=== PATIENT | male | born 1985 | race Caucasian/White ===

== ENCOUNTER → 2018-03-05 | Outpatient (CLI) | payer MEDICARE, MEDICAID ==
[~2018-03-05] MED LIST: CEP500 PO; FLUT16SP19 NS; MONT10TA PO; TIZ4 PO; TRA50 PO
--- NOTE | 2018-03-05 15:06 | RADIOLOGY IMAGING REPORT ---
FACILITY: [facility] PATIENT NAME: Shawn De Leon : 1985 MR: [id number] V: [id number] EXAM DATE: ORDERING PHYSICIAN: OSCAR SPAULDING TECHNOLOGIST: Location: [facility] - [place] Patient: Shawn De Leon : 1985 Visit/Account:[id number] Date of Sevice: 03/05/2018 Exam type: LUMBAR SPINE 2 OR 3 VIEW History: back pain Comparison: None. Findings: Two views of the lumbar spine demonstrate five nonrib-bearing lumbar-type vertebral bodies with hypop lastic ribs at T12 there is moderate disc space narrowing at T11-12 and T12-L1 and L1-L2. There is a corner fracture through the anterior superior endplate of L4 of indeterminate age. There is a 3 mm anterior listhesis of L5 through SPECT S1. IMPRESSION: 1. Corner fracture through the anterior superior endplate of L4 of indeterminate age however I suspe ct this is old due to the smooth margins Spondylotic changes as described Report Dictated By: Kari Jackson MD at 03/05/2018 3:00 PM Report E-Signed By: Kari Jackson MD at 03/05/2018 3:02 PM WSN:[email or web address]
== END ==
LOC: LAB 13:40
PROVIDERS: ATTEND Internal Medicine
DX: S32.040A Wedge compression fracture of fourth lumbar vertebra, initial encounter for closed fracture (principal); M47.817 Spondylosis without myelopathy or radiculopathy, lumbosacral region; H92.02 Otalgia, left ear
CPT/HCPCS: 72100

== ENCOUNTER → 2018-04-09 | Outpatient (CLI) | payer MEDICARE, MEDICAID ==
[~2018-04-09] MED LIST changes: +ALPR-429 PO; +SERT-181 PO
== END ==
LOC: AUD 13:00
PROVIDERS: ATTEND Otolaryngology
DX: H91.92 Unspecified hearing loss, left ear (principal)
CPT/HCPCS: 92557; 92570

== ENCOUNTER → 2018-05-10 | Outpatient (CLI) | payer MEDICARE, MEDICAID ==
[~2018-05-10] MED LIST changes: +FLUT16SP19
== END ==
LOC: AUD 13:30
PROVIDERS: ATTEND Otolaryngology
DX: H69.83 Other specified disorders of Eustachian tube, bilateral (principal)
CPT/HCPCS: 92567

== ENCOUNTER 2018-07-17 12:14 | Emergency (ER) | payer MEDICAID, MEDICARE ==
[~2018-07-17 12:14] MED LIST changes: +OFLO5DRO41 LEFT EAR
--- NOTE | 2018-07-17 12:18 | ER Report ---
History and Physical Time Seen By MD: 12:18 HPI/ROS CHIEF COMPLAINT: Left lower extremity pain HISTORY OF PRESENT ILLNESS: Patient is a 33-year-old male here with complaints of left lower extremity pain starting this morning shortly after waking up. Patient reports increased intensity of pain, in the anterior lateral aspect of the extremity distal to the knee, right distal medial extremity. Patient denies injury to the site, swelling, discoloration or paresthesias. Neurovascular exam is intact at time of evaluation, compartment is not tense on exam, capillary refill less than 2 seconds. Denies prior history of DVT, PE or clotting disord er. REVIEW OF SYSTEMS: Constitutional: No fever, no chills. Cardiovascular: No chest pain, no palpitations. Respiratory: No cough, no shortness of breath. Genitourinary: No hematuria. Musculoskeletal: No back pain. + Left lower extremity pain since this morning Skin: No rashes. Neurological: Neurovascular exam intact distal to the site of maximum tenderness Allergies: Coded Allergies: BEE STINGS (Verified Allergy, Mild, 07/17/18) NSAIDS (Non-Steroidal Anti-Inflamma (Verified Allergy, Mild, 07/17/18) erythromycin base (Verified Allergy, Mild, 07/17/18) ketorolac (Verified Allergy, Mild, 07/17/18) nitroglycerin (Verified Allergy, Mild, 07/17/18) sulfisoxazole (Verified Allergy, Mild, 07/17/18) Home Meds Active Scripts Tramadol Hcl (TRAMADOL HCL) 50 Mg Tablet, 50 MG PO Q6H PRN for PAIN, #12 TAB 0 Refills Prov:CHLOE RICH DO 07/17/18 Ofloxacin (Ofloxacin) 0.3 % Drops, 4 DROP LEFT EAR BID for 3 Days, #1 BOT Prov:KURT GILL JR, MD 06/13/18 Montelukast Sodium (SINGULAIR) 10 Mg Tablet, 1 TAB PO QDAY, #30 TAB 6 Refills Prov:OSCAR GARRETT MD 06/04/18 Fluticasone Prop 50 Mcg Ns (FLONASE 50 MCG NS) 16 Gm [place].susp, 2 SPRAYS NA QDAY for 30 Days, #1 BOT 11 Refills Prov:KURT GILL JR, MD 04/22/18 Alprazolam (XANAX) 0.5 Mg Tablet, 1 TAB PO DAILY PRN for anxiety, #30 TAB Prov:OSCAR GARRETT MD 03/24/18 Sertraline Hcl (SERTRALINE HCL) 100 Mg Tablet, 0.5-1 TAB PO QDAY, #30 TAB 2 Refills 0.5 tablets daily for 2 weeks than 1 tablet daily Prov:OSCAR GARRETT MD 03/24/18 Reported Medications Fluticasone Prop 50 Mcg Ns (FLONASE 50 MCG NS) 16 Gm [place].susp, 2 SPRAYS NS QDA Y, BOT 02/07/18 Hx Smoking: Yes (1/2 PACK) Smoking Status: Former Smoker Hx Substance Use Disorder: No Hx Alcohol Use: No Constitutional Vital Sign - Last 24 Hours 07/17/18 07/17/18 07/17/18 07/17/18 12:19 12:19 12:30 12:44 Temp 98.1 Pulse 98 100 Resp 17 B/P (MAP) 128/83 128/83 (98) 127/94 (105) Pulse Ox 91 92 O2 Delivery Room Air 07/17/18 07/17/18 07/17/18 07/17/18 13:00 13:14 13:34 13:44 Pulse 95 92 B/P (MAP) 111/78 (89) 114/82 (93) Pulse Ox 92 94 07/17/18 07/17/18 14:00 14:14 Pulse 91 B/P (MAP) 121/76 (91) Pulse Ox 94 Intake and Output 07/17/18 07/17/18 07/18/18 15:00 23:00 07:00 Intake Total 2000 ml Balance 2000 ml Physical Exam General Appearance: The patient is alert, has no immediate need for airway protection and no signs of toxicity. No acute distress Eyes: Pupils equal and round no pallor or injection. ENT, Mouth: Mucous membranes are moist. Respiratory: There are no retractions, lungs are clear to auscultation. Cardiovascular: Regular rate and rhythm. Gastrointestinal: Abdomen is soft and non tender, no masses, bowel sounds normal. Neurological: No focal neurological findings Skin: Warm and dry, no rashes. Capillary refill less than 2 seconds and distal left lower extremity Musculoskeletal: + Tenderness on palpation of the anterior lateral left lower extremity distal to the knee, distal medial left lower extremity proximal to the foot DIFFERENTIAL DIAGNOSIS: After history and physical exam differential diagnosis was considered for DVT, musculoskeletal pain, compartment syndrome, rhabdo Medical Decision Making Data Points Result Diagram: 07/17/18 0000 07/17/18 1244 Laboratory Hematology Test 07/17/18 00:00 07/17/18 12:44 07/17/18 13:23 Red Blood Count 4.84 M/uL (4.00-5.60) Mean Corpuscular Volume 89.4 fL (80.0-96.0) Mean Corpuscular Hemoglobin 29.7 pg (26.0-33.0) Mean Corpuscular Hemoglobin Concent 33.2 g/dL (32.0-36.0) Red Cell Distribution Width 13.1 % (11.5-14.5) Mean Platelet Volume 7.7 fL (7.2-11.1) Neutrophils (%) (Auto) 65.8 % (39.4-72.5) Lymphocytes (%) (Auto) 26.2 % (17.6-49.6) Monocytes (%) (Auto) 6.1 % (4.1-12.4) Eosinophils (%) (Auto) 1.0 % (0.4-6.7) Basophils (%) (Auto) 0.9 % (0.3-1.4) Nucleated RBC Relative Count (auto) 0.0 /100WBC Neutrophils # (Auto) 3.2 K/uL (2.0-7.4) Lymphocytes # (Auto) 1.3 K/uL (1.3-3.6) Monocytes # (Auto) 0.3 K/uL (0.3-1.0) Eosinophils # (Auto) 0.0 K/uL (0.0-0.5) Basophils # (Auto) 0.0 K/uL (0.0-0.1) Nucleated RBC Absolute Count (auto) 0.00 K/uL Peripheral Blood Smear Yes Y/N Erythrocyte Sedimentation Rate 1 mm/HOUR (0-15) Sodium Level 139 mmol/L (137-145) Potassium Level 4.4 mmol/L (3.5-5.0) Chloride Level 109 mmol/L (98-107) Carbon Dioxide Level 26 mmol/L (22-30) Blood Urea Nitrogen 16 mg/dl (9-21) Creatinine 1.40 mg/dl (0.66-1.25) Glomerular Filtration Rate Calc 57.7 Random Glucose 89 mg/dl (75-110) Calcium Level 9.3 mg/dl (8.4-10.2) Total Bilirubin 0.3 mg/dl (0.2-1.3) Aspartate Amino Transf (AST/SGOT) 33 U/L (0-35) Alanine Aminotransferase (ALT/SGPT) 47 U/L (0-56) Alkaline Phosphatase 51 U/L (0-126) Total Creatine Kinase 332 U/L (55-170) Total Protein 6.8 g/dl (6.3-8.2) Albumin 4.3 g/dl (3.5-5.0) Urine Color Yellow Urine Clarity Clear Urine pH 7.0 pH (4.8-9.5) Urine Specific [place] 1.012 Urine Protein Negative mg/dL (NEGATIVE) Urine Glucose (UA) Negative mg/dL (NEGATIVE) Urine Ketones Negative mg/dL (NEGATIVE) Urine Blood Negative (NEGATIVE) Urine Nitrite Negative (NEGATIVE) Urine Bilirubin Negative (NEGATIVE) Urine Urobilinogen Negative mg/dL (0.2-1.9) Urine Leukocyte Esterase Negative (NEGATIVE) Urine RBC None /HPF (0-2/HPF) Urine WBC <1 /HPF (0-5/HPF) Urine Squamous Epithelial Cells None /LPF (</=FEW) Urine Bacteria Negative /HPF (NONE-FEW) Urine Mucus None /HPF (NONE-FEW) Chemistry Test 07/17/18 00:00 07/17/18 12:44 07/17/18 13:23 White Blood Count 4.9 k/uL (4.5-11.0) Red Blood Count 4.84 M/uL (4.00-5.60) Hemoglobin 14.4 g/dL (14.0-18.0) Hematocrit 43.2 % (42.0-52.0) Mean Corpuscular Volume 89.4 fL (80.0-96.0) Mean Corpuscular Hemoglobin 29.7 pg (26.0-33.0) Mean Corpuscular Hemoglobin Concent 33.2 g/dL (32.0-36.0) Red Cell Distribution Width 13.1 % (11.5-14.5) Platelet Count 220 K/uL (150-450) Mean Platelet Volume 7.7 fL (7.2-11.1) Neutrophils (%) (Auto) 65.8 % (39.4-72.5) Lymphocytes (%) (Auto) 26.2 % (17.6-49.6) Monocytes (%) (Auto) 6.1 % (4.1-12.4) Eosinophils (%) (Auto) 1.0 % (0.4-6.7) Basophils (%) (Auto) 0.9 % (0.3-1.4) Nucleated RBC Relative Count (auto) 0.0 /100WBC Neutrophils # (Auto) 3.2 K/uL (2.0-7.4) Lymphocytes # (Auto) 1.3 K/uL (1.3-3.6) Monocytes # (Auto) 0.3 K/uL (0.3-1.0) Eosinophils # (Auto) 0.0 K/uL (0.0-0.5) Basophils # (Auto) 0.0 K/uL (0.0-0.1) Nucleated RBC Absolute Count (auto) 0.00 K/uL Peripheral Blood Smear Yes Y/N Erythrocyte Sedimentation Rate 1 mm/HOUR (0-15) Glomerular Filtration Rate Calc 57.7 Calcium Level 9.3 mg/dl (8.4-10.2) Total Bilirubin 0.3 mg/dl (0.2-1.3) Aspartate Amino Transf (AST/SGOT) 33 U/L (0-35) Alanine Aminotransferase (ALT/SGPT) 47 U/L (0-56) Alkaline Phosphatase 51 U/L (0-126) Total Creatine Kinase 332 U/L (55-170) Total Protein 6.8 g/dl (6.3-8.2) Albumin 4.3 g/dl (3.5-5.0) Urine Color Yellow Urine Clarity Clear Urine pH 7.0 pH (4.8-9.5) Urine Specific [place] 1.012 Urine Protein Negative mg/dL (NEGATIVE) Urine Glucose (UA) Negative mg/dL (NEGATIVE) Urine Ketones Negative mg/dL (NEGATIVE) Urine Blood Negative (NEGATIVE) Urine Nitrite Negative (NEGATIVE) Urine Bilirubin Negative (NEGATIVE) Urine Urobilinogen Negative mg/dL (0.2-1.9) Urine Leukocyte Esterase Negative (NEGATIVE) Urine RBC None /HPF (0-2/HPF) Urine WBC <1 /HPF (0-5/HPF) Urine Squamous Epithelial Cells None /LPF (</=FEW) Urine Bacteria Negative /HPF (NONE-FEW) Urine Mucus None /HPF (NONE-FEW) Urinalysis Test 07/17/18 13:23 Urine Color Yellow Urine Clarity Clear Urine pH 7.0 pH (4.8-9.5) Urine Specific [place] 1.012 Urine Protein Negative mg/dL (NEGATIVE) Urine Glucose (UA) Negative mg/dL (NEGATIVE) Urine Ketones Negative mg/dL (NEGATIVE) Urine Blood Negative (NEGATIVE) Urine Nitrite Negative (NEGATIVE) Urine Bilirubin Negative (NEGATIVE) Urine Urobilinogen Negative mg/dL (0.2-1.9) Urine Leukocyte Esterase Negative (NEGATIVE) Urine RBC None /HPF (0-2/HPF) Urine WBC <1 /HPF (0-5/HPF) Urine Squamous Epithelial Cells None /LPF (</=FEW) Urine Bacteria Negative /HPF (NONE-FEW) Urine Mucus None /HPF (NONE-FEW) [place] [facility] [place] Shawn De [place] : 1985 Visit/Account:[id number] Date of Sevice: 07/17/2018 Exam type: US VENOUS LOWER EXT LT History: Left rosario pain x1 day Comparison: None. Findings: The left first 20 veins are imaged including the left common femoral vein greater saphenous vein superficial femoral vein profunda femoral vein popliteal vein, posterior tibial vein, peroneal vein and anterior tibial veins revealing no evidence intraluminal thrombi. The veins were compressible and understood augmentation IMPRESSION: 1. No sonographic evidence DVT involving the left lower extremity veins ED Course/Re-evaluation ED Course Patient is a 33-year-old male here with complaints of left lower extremity anterior pain which started this morning. Patient reports taking numerous supplements and vitamins, exercising frequently. Decision was made to complete a duplex to rule out DVT. Duplex imaging was negative for DVT. Patient labs were remarkable for mildly elevated CPK, elevated creatinine of 1.4 with no prior history of renal dysfunction. Included in the patient's supplements, patient does take creatine powder among numerous others which may be contributing to the patient's renal dysfunction. Patient was given 2 L normal saline. Initial concern was for rhabdomyolysis. Her electrolytes were normal, CPK was not elevated and the realm of rhabdo. I discussed with the patient that he should hold off on taking his supplements until he was able to be evaluated by his PCP and a combination building inspector to determine the etiology of his renal dysfunction. Patient voiced understanding of plan. I discussed the patient with his PCP Dr. Garrett who recommended ordering an outpatient 24-hour Holter complete metabolic profile to evaluate for patient's renal function in case it is rapidly progressive. I ga ve the patient a prescription for a CMP to be completed in 24 hours. Patient is to follow-up with his PCP on Saturday. Return precautions were provided. Patient was hemodynamically stable at time of discharge and in no acute distress. Decision to Disposition Date: Jul 17, 2018 Decision to Disposition Time: 14:03 Depart Departure Latest Vital Signs Vital Signs Date Time Temp Pulse Resp B/P (MAP) Pulse Ox O2 Delivery O2 Flow Rate FiO2 07/17/18 14:14 91 94 07/17/18 14:00 121/76 (91) 07/17/18 12:19 98.1 17 Room Air Impression: Primary Impression: Acute kidney injury Condition: Improved Disposition: HOME OR SELF-CARE New Scripts Tramadol Hcl (TRAMADOL HCL) 50 Mg Tablet 50 MG PO Q6H PRN for PAIN, #12 TAB 0 Refills Prov: CHLOE RICH DO 07/17/18 Patient Instructions: Acute Kidney Injury (DC) Additional Instructions: Please follow-up in the next 24-48 hours with your primary care doctor. Please discontinue all supplements as these may be exacerbating your renal dysfunction. Please return immediately if you develop palpitations, chest pains, abdominal pains, fevers or chills, decreased urine outputs, blood in the urine or stools. Please drink plenty of water. Please follow-up tomorrow with outpatient lab with your prescription for a repeat complete metabolic profile which will be forwarded to your primary care physician. Please call Dr. Garrett's office to schedule appointment for Saturday. You may take 1 tramadol every 6-8 hours as needed for pain control. CHLOE RICH DO Jul 17, 2018 12:18
[2018-07-17] MEDS ORDERED: NS(*) 0.9% 1000 ML BAG 1,000 ML IV ONE ×2 (13:10)
[2018-07-17 13:27] LABS: PLATELET COUNT, AUTOMATED 220 K/uL (150-450)
--- NOTE | 2018-07-17 13:45 | RADIOLOGY IMAGING REPORT ---
FACILITY: [facility] PATIENT NAME: Shawn De Leon : 1985 MR: [id number] V: [id number] EXAM DATE: ORDERING PHYSICIAN: CHLOE RICH TECHNOLOGIST: Location: [facility] - [place] Patient: Shawn De Leon : 1985 Visit/Account:[id number] Date of Sevice: 07/17/2018 Exam type: US VENOUS LOWER EXT LT History: Left rosario pain x1 day Comparison: None. Findings: The left first 20 veins are imaged including the left common femoral vein greater saphenous vein supe rficial femoral vein profunda femoral vein popliteal vein, posterior tibial vein, peroneal vein and a nterior tibial veins revealing no evidence intraluminal thrombi. The veins were compressible and und erstood augmentation IMPRESSION: 1. No sonographic evidence DVT involving the left lower extremity veins Report Dictated By: Kari Jackson MD at 07/17/2018 1:39 PM Report E-Signed By: Kari Jackson MD at 07/17/2018 1:40 PM WSN:[email or web address]
[2018-07-17 14:00] VITALS: BP 121/76
[2018-07-17] MEDS ORDERED: TRAM-420 PO (14:22)
== END 2018-07-17 14:41 | disposition home or self-care (01) ==
LOC: ER 12:23
DX: M79.605 Pain in left leg (principal); N17.9 Acute kidney failure, unspecified
CPT/HCPCS: 81001; 82550; 85025; 85651; 93971; 96360; 99284; A9270; J7030; 82040; 82247; 82310; 82374; 82435; 82565; 82947; 84075; 84132; 84155; 84295; 84450; 84460; 84520

== ENCOUNTER → 2018-07-18 | Outpatient (CLI) | payer MEDICARE, MEDICAID ==
[~2018-07-18] MED LIST changes: +TRAM-420 PO
== END ==
LOC: LAB 13:15
PROVIDERS: ATTEND Student in an Organized Health Care Education/Training Program
DX: N17.9 Acute kidney failure, unspecified (principal)
CPT/HCPCS: 36415; 82040; 82247; 82310; 82374; 82435; 82565; 82947; 84075; 84132; 84155; 84295; 84450; 84460; 84520

== ENCOUNTER → 2018-07-21 | Outpatient (CLI) | payer MEDICARE, MEDICAID ==
[2018-07-21 10:55] LABS: PLATELET COUNT, AUTOMATED 284 K/uL (150-450)
== END ==
LOC: LAB 10:10
PROVIDERS: ATTEND Internal Medicine
DX: N17.9 Acute kidney failure, unspecified (principal); F41.1 Generalized anxiety disorder; M54.5 Low back pain
CPT/HCPCS: 36415; 81001; 82040; 82247; 82310; 82374; 82435; 82550; 82565; 82947; 84075; 84132; 84155; 84295; 84443; 84450; 84460; 84520; 85025

== ENCOUNTER → 2018-09-10 | Outpatient (CLI) | payer MEDICARE, MEDICAID ==
[2018-09-10 10:59] LABS: PLATELET COUNT, AUTOMATED 264 K/uL (150-450)
== END ==
LOC: LAB 10:33
PROVIDERS: ATTEND Internal Medicine
DX: N17.9 Acute kidney failure, unspecified (principal); R74.8 Abnormal levels of other serum enzymes; M54.5 Low back pain
CPT/HCPCS: 36415; 81001; 82040; 82247; 82310; 82374; 82435; 82550; 82565; 82947; 84075; 84132; 84155; 84295; 84450; 84460; 84520; 85025

== ENCOUNTER → 2018-10-14 | Outpatient (CLI) | payer MEDICARE, MEDICAID ==
[~2018-10-14] MED LIST changes: +HYDR30CR10 TP; +TRIA15OI20 TP
== END ==
LOC: LAB 10:54
PROVIDERS: ATTEND Internal Medicine
DX: Z02.9 Encounter for administrative examinations, unspecified (principal)

== ENCOUNTER → 2018-10-16 | Outpatient (CLI) | payer MEDICARE, MEDICAID ==
[2018-10-16 13:22] LABS: PLATELET COUNT, AUTOMATED 277 K/uL (150-450)
[2018-10-16 13:35] LABS: LDL CHOLESTEROL 124 mg/dl
== END ==
LOC: LAB 13:07
PROVIDERS: ATTEND Internal Medicine
DX: Z00.00 Encounter for general adult medical examination without abnormal findings (principal); F41.1 Generalized anxiety disorder; L85.3 Xerosis cutis
CPT/HCPCS: 36415; 82040; 82247; 82310; 82374; 82435; 82465; 82565; 82947; 83718; 84075; 84132; 84155; 84295; 84443; 84450; 84460; 84478; 84520; 85025

== ENCOUNTER → 2018-12-01 | Outpatient (CLI) | payer MEDICARE, MEDICAID | LOC: LAB 12:01 | PROVIDERS: ATTEND Internal Medicine | DX: R79.89 Other specified abnormal findings of blood chemistry (principal) | CPT/HCPCS: 36415; 84439; 84443; 84481 ==

== ENCOUNTER → 2018-12-31 | Outpatient (CLI) | payer MEDICARE, MEDICAID ==
[~2018-12-31] MED LIST changes: +CETI10CA8 PO; +EPIN0.3P15 IM; +FEXO-67 PO; +GABA-547 PO; +HYDR25CA13 PO; +PRED20TA6 PO; +TRI40I INTRA-ART
== END ==
LOC: LAB 11:36
PROVIDERS: ATTEND Physician Assistant
DX: Z91.09 Other allergy status, other than to drugs and biological substances (principal)
CPT/HCPCS: 36415; 86003

== ENCOUNTER 2019-01-18 08:07 | Observation (INO) | payer MEDICARE, MEDICAID ==
[~2019-01-18] VITALS: Ht 175.3 cm; Wt 102.1 kg
[~2019-01-18 08:07] MED LIST changes: +CLOB15OI16 TP
[2019-01-18] MEDS ORDERED: NS(*) 0.9% 1000 ML BAG 1,000 ML IV ONE (08:23)
--- NOTE | 2019-01-18 08:23 | ER Report ---
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 Patient states symptoms started yesterday morning approximately 5 AM with some muscle discomfort that slightly improved throughout the day but then worsened yesterday evening. He states this morning he was having significant difficulty doing basic tasks with his hands and legs due to severe weakness. He is endorsing mild sore throat. He denies any chest pain, shortness of breath, cough, recent illness, fever. He states he does feel like he has chills. He denies any recent diarrheal illness. No previous history of similar episodes. Denies any tobacco, alcohol, illicit substances. He denies any double vision, significant headache. No recent increase in physical activity level. Remainder of the 14 system rev: Yes Allergies: Coded Allergies: BEE STINGS (Verified Allergy, Mild, 07/17/18) NSAIDS (Non-Steroidal Anti-Inflamma (Verified Allergy, Mild, 07/17/18) erythromycin base (Verified Allergy, Mild, 07/17/18) ketorolac (Verified Allergy, Mild, 07/17/18) nitroglycerin (Verified Allergy, Mild, 07/17/18) sulfisoxazole (Verified Allergy, Mild, 07/17/18) Home Meds Active Scripts Clobetasol Propionate (CLOBETASOL PROPIONATE) 15 Gm Oint...g., 1 CHRISTIAN TP BID for 30 Days, #1 TUBE 1 Refill Do not use on face, neck, axillae, or groin. Prov:HIPOLITO ARIAS 01/15/19 Epinephrine (EPIPEN 2-EMERY) 0.3 Mg/0.3 Ml Pen.injctr, 0.3 MG IM PRN for 1 Day, #1 PACK Prov:MARIANA ACOSTA PA-C 12/31/18 Cetirizine Hcl (ZYRTEC) 10 Mg Capsule, 10 MG PO QDAY for 180 Days, #180 CAPSULE 1 Refill Prov:MARIANA ACOSTA PA-C 12/31/18 Fluticasone Prop 50 Mcg Ns (FLONASE 50 MCG NS) 16 Gm [place].susp, 2 SPRAYS NA QDAY for 30 Days, #1 BOT 6 Refills Prov:OSCAR SPAULDING MD 12/10/18 Discontinued Scripts Levocetirizine (XYZAL) 5 Mg Tab Prov:NICCI MOORE DNP, CCNA-BC 12/23/18 Gabapentin (GABAPENTIN) 100 Mg Capsule, 1-3 CAP PO TID, #60 CAPSULE 3 Refills Prov:OSCAR SPAULDING MD 12/10/18 Reviewed Nurses Notes: Yes Old Medical Records Reviewed: Yes Hx Smoking: Yes (1/2 PACK) Smoking Status: Former Smoker Hx Substance Use Disorder: No Hx Alcohol Use: No Constitutional Vital Sign - Last 24 Hours 01/18/19 01/18/19 01/18/19 01/18/19 08:08 08:16 08:33 08:37 Temp 99.5 Pulse 84 84 Resp 12 B/P (MAP) 128/58 (81) 128/58 119/78 (92) Pulse Ox 95 92 O2 Delivery Room Air 01/18/19 01/18/19 09:00 09:07 Pulse 76 B/P (MAP) 107/48 (67) Pulse Ox 91 Physical Exam General Appearance: Mildly diaphoretic; appears uncomfortable Eyes: Pupils equal and round no pallor or injection. ENT, Mouth: [Mucous membranes are moist. No posterior oropharynx erythema. Left tympanostomy tube in place. Right TM clear. Full range of motion of the neck without meningismus. Respiratory: [There are no retractions, lungs are clear to auscultation.] Cardiovascular: [Regular rate and rhythm.] [ ] Gastrointestinal: [Abdomen is soft and non tender, no masses, bowel sounds normal.] [Neurological:] No focal neurological deficits. Speech fluent. [Skin:] [Warm and dry, no rashes.] [Musculoskeletal:] Pain palpation of all muscle groups; upper extremities greater than lower extremities. Diffuse global weakness. Medical Decision Making Data Points Result Diagram: 01/18/1982601/18/19826 Laboratory Hematology Test 01/18/19 08:27 01/18/19 08:33 White Blood Count 3.4 k/uL (4.5-11.0) L Red Blood Count 4.91 M/uL (4.00-5.60) Hemoglobin 15.2 g/dL (14.0-18.0) Hematocrit 44.8 % (42.0-52.0) Mean Corpuscular Volume 91.1 fL (80.0-96.0) Mean Corpuscular Hemoglobin 31.0 pg (26.0-33.0) Mean Corpuscular Hemoglobin Concent 34.0 g/dL (32.0-36.0) Red Cell Distribution Width 14.9 % (11.5-14.5) H Platelet Count 221 K/uL (150-450) Mean Platelet Volume 6.6 fL (7.2-11.1) L Neutrophils (%) (Auto) 63.5 % (39.4-72.5) Lymphocytes (%) (Auto) 24.8 % (17.6-49.6) Monocytes (%) (Auto) 10.6 % (4.1-12.4) Eosinophils (%) (Auto) 0.5 % (0.4-6.7) Basophils (%) (Auto) 0.6 % (0.3-1.4) Nucleated RBC Relative Count (auto) 0.0 /100WBC Neutrophils # (Auto) 2.2 K/uL (2.0-7.4) Lymphocytes # (Auto) 0.8 K/uL (1.3-3.6) L Monocytes # (Auto) 0.4 K/uL (0.3-1.0) Eosinophils # (Auto) 0.0 K/uL (0.0-0.5) Basophils # (Auto) 0.0 K/uL (0.0-0.1) Nucleated RBC Absolute Count (auto) 0.00 K/uL Erythrocyte Sedimentation Rate 12 mm/HOUR (0-15) Chemistry Test 01/18/19 08:27 01/18/19 08:33 Sodium Level 137 mmol/L (137-145) Potassium Level 4.1 mmol/L (3.5-5.0) Chloride Level 102 mmol/L (98-107) Carbon Dioxide Level 23 mmol/L (22-30) Blood Urea Nitrogen 10 mg/dl (9-21) Creatinine 1.10 mg/dl (0.66-1.25) Glomerular Filtration Rate Calc > 60.0 Random Glucose 117 mg/dl (75-110) Lactate 1.1 mmol/L (0.7-2.1) Calcium Level 8.7 mg/dl (8.4-10.2) Magnesium Level 1.8 mg/dl (1.7-2.2) Total Bilirubin 0.4 mg/dl (0.2-1.3) Aspartate Amino Transf (AST/SGOT) 128 U/L (0-35) Alanine Aminotransferase (ALT/SGPT) 250 U/L (0-56) Alkaline Phosphatase 121 U/L (0-126) Total Creatine Kinase 666 U/L (55-170) Total Protein 6.5 g/dl (6.3-8.2) Albumin 4.0 g/dl (3.5-5.0) C-Reactive Protein 2.8 mg/dl (<1.0) Urinalysis Test 01/18/19 08:33 Urine Color Yellow Urine Clarity Clear Urine pH 6.0 pH (4.8-9.5) Urine Specific [place] 1.017 Urine Protein Negative mg/dL (NEGATIVE) Urine Glucose (UA) Negative mg/dL (NEGATIVE) Urine Ketones Trace mg/dL (NEGATIVE) Urine Blood Negative (NEGATIVE) Urine Nitrite Negative (NEGATIVE) Urine Bilirubin Negative (NEGATIVE) Urine Urobilinogen Negative mg/dL (0.2-1.9) Urine Leukocyte Esterase Negative (NEGATIVE) Urine RBC 4 /HPF (0-2/HPF) Urine WBC <1 /HPF (0-5/HPF) Urine Squamous Epithelial Cells Few /LPF (</=FEW) Urine Bacteria Negative /HPF (NONE-FEW) Urine Mucus Few /HPF (NONE-FEW) ED Course/Re-evaluation ED Course 33-year-old male who presents with one day of diffuse myalgias with associated weakness. Patient is hemodynamically stable, afebrile. He has no focal neurological deficits on physical exam. Exam is most notable for tenderness to palpation in all muscle groups as well as diffuse weakness. Differential includes but is not limited to myositis, rhabdo, electrolyte abnormality, viral syndrome. Labs are notable for elevated CK at 666; reviewing previous labs, the patient appears to have mildly elevated CKs at baseline in the 200-300 range. Additionally, labs are full for mildly elevated LFTs as well as a mildly elevate d CRP. Creatinine is within normal limits at 1.1 although mildly up from 0.9 of the patient's most recent eyes. He was given acetaminophen, diazepam, and a liter of crystalloid for symptomatically treatment. On reassessment, the patient was still having significant muscle pain and generalized weakness and do not feel that he is able to go home at this time. It appears he is having some type of muscle breakdown of unclear etiology. He has no recent increased physical activity, is not currently on a statin, has not had any recent infectious symptoms. I discussed with the admitting hospitalist Dr. Candelario who is in agreement with admission for further workup and management. Discussed this with the patient who is in agreement with admission. Decision to Disposition Date: Jan 18, 2019 Decision to Disposition Time: 09:20 Depart Departure Latest Vital Signs Vital Signs Date Time Temp Pulse Resp B/P (MAP) Pulse Ox O2 Delivery O2 Flow Rate FiO2 01/18/19 09:07 76 91 01/18/19 09:00 107/48 (67) 01/18/19 08:16 99.5 12 Room Air Impression: Primary Impression: Elevated LFTs Additional Impression: Myalgia Condition: Condition Unchanged Disposition: Admitted from ER Referrals: OSCAR SPAULDING MD (PCP) Problem Qualifiers JASBIR CHING MD Jan 18, 2019 08:23
[2019-01-18] MEDS ORDERED: DIAZEPAM 5 MG TAB PO ONE (08:35)
[2019-01-18] MEDS ORDERED: ACETAMINOPHEN 500 MG TAB PO ONE (08:35)
[2019-01-18 08:38] LABS: PLATELET COUNT, AUTOMATED 221 K/uL (150-450)
[2019-01-18 10:25] VITALS: BP 114/65
[2019-01-18] MEDS ORDERED: INFLUENZA VIRUS VAC 0.5ML SYR IM ONLY ONE (10:55)
[2019-01-18] MEDS ORDERED: PANTOPRAZOLE SOD 40 MG IV VIAL IVP ONE (11:00)
[2019-01-18] MEDS ORDERED: MORPHINE 4 MG/ML SDV IVP PRN (11:35)
[2019-01-18] MEDS ORDERED: PROMETHAZINE 25 MG/ML 1 ML AMP IVP PRN (11:35)
--- NOTE | 2019-01-18 11:51 | History & Physical ---
History of Present Illness Chief Complaint muscle pain and weakness History of Present Illness 33-year-old male with history of Chiari one malformation status post decompression in 2008 who presented to the emergency department with one day of diffuse muscle pain and weakness. Patient reports his symptoms started yesterday morning approximately 5 AM with some muscle discomfort that slightly improved throughout the day but then worsened yesterday evening, he had some nausea and one episode of vomiting. He states this morning he was having significant difficulty doing basic tasks with his hands and legs due to severe weakness. He also has complaints of mild sore throat. He denies any chest pain, shortness of breath, cough, recent illness, fever. He states he does feel like he has chills. He denies any recent diarrheal illness. No previous history of similar episodes. Denies any tobacco, alcohol, illicit substances. He denies any double vision, significant headache. No recent increase in physical activity level. He was recommended for admission. History Problems: (1) Chiari malformation Status: Chronic (2) Allergic rhinitis Status: Chronic Home Meds Active Scripts Clobetasol Propionate (CLOBETASOL PROPIONATE) 15 Gm Oint...g., 1 CHRISTIAN TP BID for 30 Days, #1 TUBE 1 Refill Do not use on face, neck, axillae, or groin. Prov:HIPOLITO ARIAS NPC 01/15/19 Epinephrine (EPIPEN 2-EMERY) 0.3 Mg/0.3 Ml Pen.injctr, 0.3 MG IM PRN for 1 Day, #1 PACK Prov:MARIANA ACOSTA PA-C 12/31/18 Cetirizine Hcl (ZYRTEC) 10 Mg Capsule, 10 MG PO QDAY for 180 Days, #180 CAPSULE 1 Refill Prov:MARIANA ACOSTA PA-C 12/31/18 Fluticasone Prop 50 Mcg Ns (FLONASE 50 MCG NS) 16 Gm [place].susp, 2 SPRAYS NA QDAY for 30 Days, #1 BOT 6 Refills Prov:OSCAR SPAULDING MD 12/10/18 Discontinued Scripts Levocetirizine (XYZAL) 5 Mg Tab Prov:NICCI MOORE DNP, TELEVISION WRITER-BC 12/23/18 Gabapentin (GABAPENTIN) 100 Mg Capsule, 1-3 CAP PO TID, #60 CAPSULE 3 Refills Prov:OSCAR SPAULDING MD 12/10/18 Allergies: Coded Allergies: BEE STINGS (Verified Allergy, Mild, 07/17/18) NSAIDS (Non-Steroidal Anti-Inflamma (Verified Allergy, Mild, 07/17/18) erythromycin base (Verified Allergy, Mild, 07/17/18) ketorolac (Verified Allergy, Mild, 07/17/18) nitroglycerin (Verified Allergy, Mild, 07/17/18) sulfisoxazole (Verified Allergy, Mild, 07/17/18) Patient History: Patient reports no known family medical history. Hx Smoking: Yes Smoking Status: Former Smoker When Quit Tobacco?: 2017 Caffeine Intake: Coffee Caffeine/Cups Per Day: 1 CUP Hx Alcohol Use: No Hx Substance Use Disorder: No Review of Systems All Systems Reviewed/Normal: Yes, Except as Noted Constitutional: Chills, Night Sweats Neurological: Weakness Gastrointestinal: Nausea, Vomiting Musculoskeletal: Pain (muscle pain) Exam Vital Signs Vital Signs Date Time Temp Pulse Resp B/P (MAP) Pulse Ox O2 Delivery O2 Flow Rate FiO2 01/18/19 10:27 94 Room Air 01/18/19 10:25 98.8 65 16 114/65 (81) General Appearance: Alert, Awake, No Acute Distress, Afebrile Neuro: No Gross deficits Cardiovascular: Regular Rate and Rhythm Respiratory: No Respiratory Distress, Clear to Auscultation GI: Abd Soft and Non-Tender Musculoskeletal: Other (pain to palpation to upper extremities, weakness to movement of bilateral upper and lower extremities) Extremities: Warm, Perfused; No Edema Psych: Alert & Oriented X3, Appropriate Mood & Affect Medical Decision Making Data Points Result Diagram: 01/18/1982601/18/19826 Item Value Date Time Erythrocyte Sedimentation Rate 12 mm/HOUR 01/18/19 08 C-Reactive Protein 2.8 mg/dl H 01/18/19 08 Total Creatine Kinase 666 U/L H 01/18/19826 Assessment and Plan Problems: (1) Viral myositis Status: Acute Assessment & Plan: He presented with nausea, vomiting, acute muscle pain. He does have increased CPK, mildly elevated CRP, normal ESR. We spoke with Dr. Mukher[facility] in [place] who recommended to treat as viral myositis at this time. Continue IV fluids and give antiemetics. Will check GGT, strep screen, aldolase. If no improvement in a few days, consider Prednisone at 80mg, with taper. Likely secondary to gastroenteritis. Will also order PT/OT evaluations. (2) Elevated LFTs Status: Acute Assessment & Plan: Continue to watch labs. Will order GGT. (3) Allergic rhinitis Status: Chronic Assessment & Plan: Continue chronic Flonase and Zyrtec. (4) Chiari malformation Status: Chronic Assessment & Plan: s/p decompression in 2008. Venous Thromboembolism Antithrombotics Is Pt On Any Antithrombotics?: Yes Exam Sepsis Risk: No Definite Risk CECI MORGAN TELEVISION WRITER Jan 18, 2019 11:51
[2019-01-18] MEDS: NS(*) 0.9% 1000 ML BAG 1,000 ML IV PRN ×2 (11:58→19:46)
[2019-01-18 15:42] VITALS: BP 107/67
[2019-01-18] MEDS: MORPHINE 4 MG/ML SDV IVP PRN ×4 (15:52→23:17)
[2019-01-18 18:52] VITALS: BP 113/64
[2019-01-18] MEDS: DIAZEPAM 5 MG TAB PO PRN (20:33)
[2019-01-18 23:01] VITALS: BP 104/61
[2019-01-19 03:21] VITALS: BP 99/69
[2019-01-19] MEDS: DIAZEPAM 5 MG TAB PO PRN (03:34)
[2019-01-19] MEDS: MORPHINE 4 MG/ML SDV IVP PRN ×5 (03:35→21:46)
[2019-01-19] MEDS: NS(*) 0.9% 1000 ML BAG 1,000 ML IV PRN ×3 (03:54→21:20)
[2019-01-19 05:57] LABS: PLATELET COUNT, AUTOMATED 207 K/uL (150-450)
--- NOTE | 2019-01-19 08:06 | NUR ---
Physical Therapy Impression PT/OT co eval complete. Pt's main complaints are pain of the extremities and lack of integration software developer strength, despite this, pt with overall good tolerance to gross mobility tasks. Myriam for bed mobility, transfers with no AD. Ambulation x200' with Myriam, pt with increased pain with ambulation. PT instruction to asc/desc 3 stairs with railing. Pt rested forearms on railing d/t lack of integration software developer strength, but with good tolerance overall. No further inpatient PT needs, rec f/u with OP PT services. Physical Therapy Goals 1: Pt to complete bed mobility with Myriam 2: Pt to complete transfers with Myriam 3: Pt to ambulate 200' with Myriam 4: Pt to asc/desc 3 stairs with SBA Patient's Goals
[2019-01-19] MEDS ORDERED: PANTOPRAZOLE SOD 40 MG TABEC PO SCH (09:00)
[2019-01-19 09:33] VITALS: BMI 33.2
[2019-01-19 09:35] VITALS: Ht 175.3 cm; Wt 102.1 kg
[2019-01-19 09:55] VITALS: BP 110/55
[2019-01-19] MEDS: CETIRIZINE HCL 10 MG TAB PO SCH (09:58)
[2019-01-19] MEDS: FLUTICASONE PROP 0.05% 16 GM ENA SCH (09:58)
[2019-01-19] MEDS: ENOXAPARIN 40 MG/0.4ML SYR SC SCH (10:01)
--- NOTE | 2019-01-19 11:08 | NUR ---
Occupational Therapy Impression Co-evaluation with PT. No OT needs at this time. Pt. ready for d/c to home when medically appropriate. Pt. to resume OP PT when cleared by physician. Occupational Therapy Goals Patient's Goal
[2019-01-19] MEDS: ACETAMINOPHEN 500 MG TAB PO PRN ×3 (11:59→21:45)
--- NOTE | 2019-01-19 14:32 | Hospitalist Progress Note ---
Subjective Progress Notes Subjective No acute events overnight. 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 He state spam like pain in his right lower extremity in the evening of 01/18. Patient Complains of: Neurological: No: Syncope, Confusion Cardiovascular: No: Chest Pain, Palpitations Respiratory: No: Congestion, Shortness of Breath Physical Exam Vital Signs Date Time Temp Pulse Resp B/P (MAP) Pulse Ox O2 Delivery O2 Flow Rate FiO2 01/19/19 11:31 96 Room Air 01/19/19 09:55 99.5 80 18 110/55 (73) Intake and Output 01/19/19 01:03 Intake Total 1240 ml Balance 1240 ml Intake Oral 240 ml IV Total 1000 ml # Voids 1 General Appearance: Alert, Awake, No Acute Distress Musculoskeletal: No Weakness/Pain (He is able to push/pull with his feet with equal strentgh. Push/Pull with up[per extremeties was consitant with expected strenght. Biceps and Brachioradialis reflexes were +2 bilaterally. ) Psych: Alert & Oriented X3, Appropriate Mood & Affect Result Diagram: 01/19/1952401/19/19 05 Assessment and Plan Problems: (1) Viral myositis Status: Acute Assessment & Plan: He presented with nausea, vomiting, acute muscle pain. He does have increased CPK, mildly elevated CRP, normal ESR. We spoke with Dr. Mukherjee [facility] in [place] who recommended to treat as viral myositis at this time. Continue IV fluids and give antiemetics. GGT and aldolase pending. Strep screen negative. If no improvement in a few days, consider Prednisone 80mg and taper. Will begin Prednisone 80mg today and monitor for improvement. If no improvement noted, will consider MRI of affected areas. (2) Elevated LFTs Status: Acute Assessment & Plan: Continue to watch labs. Will order GGT. (3) Allergic rhinitis Status: Chronic Assessment & Plan: Continue chronic Flonase and Zyrtec. (4) Chiari malformation Status: Chronic Assessment & Plan: s/p decompression in 2008. Exam Sepsis Risk: No Definite Risk WENDY ROSE Jan 19, 2019 14:32
[2019-01-19] MEDS: predniSONE 20 MG TAB PO SCH (15:10)
[2019-01-19 15:12] VITALS: BP 102/65
[2019-01-19] MEDS ORDERED: OMEG-11 PO (15:31)
[2019-01-19] MEDS ORDERED: CHOL10005 PO (15:31)
[2019-01-19] MEDS ORDERED: FERR324T16 PO (15:31)
[2019-01-19] MEDS ORDERED: MULT-1335 PO (15:32)
[2019-01-19 18:58] VITALS: BP 107/70
[2019-01-20 03:29] VITALS: BP 102/53
[2019-01-20] MEDS: NS(*) 0.9% 1000 ML BAG 1,000 ML IV PRN (05:33)
[2019-01-20] MEDS: CETIRIZINE HCL 10 MG TAB PO SCH (09:48)
[2019-01-20] MEDS: predniSONE 20 MG TAB PO SCH (09:48)
[2019-01-20] MEDS: ENOXAPARIN 40 MG/0.4ML SYR SC SCH (09:49)
[2019-01-20] MEDS: ACETAMINOPHEN 500 MG TAB PO PRN (09:50)
[2019-01-20] MEDS: FLUTICASONE PROP 0.05% 16 GM ENA SCH (09:51)
[2019-01-20 09:52] VITALS: BP 117/71
[2019-01-20] MEDS ORDERED: PRED20TA6 PO (10:58)
--- NOTE | 2019-01-20 11:30 | Hospitalist Depart ---
Discharge Summary Reason for Hosp/Final Diag: (1) Viral myositis Status: Acute Hospital Course & Plan: He presented with nausea, vomiting, acute muscle pain. He does have increased CPK, mildly elevated CRP, normal ESR. We spoke with Dr. Mukherjee [facility] in [place] who recommended to treat as viral myositis at this time. Continue IV fluids and give antiemetics. GGT and aldolase pending. Strep screen negative. If no improvement in a few days, consider Prednisone 80mg and taper. Will begin Prednisone 80mg today and monitor for improvement. 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 Left improved more notably than the right. Pain is decreased, and he was able to sleep through the most of the night. Discussed options for discharge vs observing more, and he expressed interest in discharging home. Will continue for a total of 4 days worth of 80mg prednisone and then taper down. (2) Elevated LFTs Status: Acute Hospital Course & Plan: Likely due to muscle injury. Will discharge and have him recheck CMP, CRP, CPK and close follow up with his PCP and possible rheumatology. (3) Allergic rhinitis Status: Chronic Hospital Course & Plan: Continue chronic Flonase and Zyrtec. (4) Chiari malformation Status: Chronic Hospital Course & Plan: s/p decompression in 2008. Departure Weight (Pounds): 225 Result Diagram: 01/19/1952401/19/19524 Condition: Improved Discharge: Home, Self Care Discharge Instructions Home Meds Active Scripts Prednisone (PREDNISONE) 20 Mg Tablet, 20 MG PO QDAY, #25 TAB Take 4 tablets for 3 days, Then take 3 tablets for 2 days, then take 2 tablets for 2 days, then take 1 tablet for 2 days, then take 1/2 tablet for 2 days, then off. Prov:WENDY ROSE 01/20/19 Clobetasol Propionate (CLOBETASOL PROPIONATE) 15 Gm Oint...g., 1 CHRISTIAN TP BID for 30 Days, #1 TUBE 1 Refill Do not use on face, neck, axillae, or groin. Prov:HIPOLITO ARIAS NPC 01/15/19 Epinephrine (EPIPEN 2-EMERY) 0.3 Mg/0.3 Ml Pen.injctr, 0.3 MG IM PRN for 1 Day, #1 PACK Prov:MARIANA ACOSTA PA-C 12/31/18 Cetirizine Hcl (ZYRTEC) 10 Mg Capsule, 10 MG PO QDAY for 180 Days, #180 CAPSULE 1 Refill Prov:DAVEMARIANA Gooden PA-C 12/31/18 Fluticasone Prop 50 Mcg Ns (FLONASE 50 MCG NS) 16 Gm [place].susp, 2 SPRAYS NA QDAY for 30 Days, #1 BOT 6 Refills Prov:OSCAR SPAULDING MD 12/10/18 Reported Medications Multivitamin With Minerals (MULTIPLE VITAMIN) 1 Each Tablet, 1 TAB PO QDAY, TAB 01/19/19 Cholecalciferol (Vitamin D3) (VITAMIN D3) 1,000 Unit Tablet, 2 TAB PO QDAY, TAB 01/19/19 [place]-3 Fatty Acids/Fish Oil (FISH OIL 1,000 MG CAPSULE) 1 Each Capsule, 1 EACH PO QDAY, CAPSULE 01/19/19 Ferrous Sulfate (FERROUS SULFATE) 324 Mg Tablet.dr, 324 MG PO QDAY 01/19/19 Discontinued Scripts Levocetirizine (XYZAL) 5 Mg Tab Prov:NICCI MOORE DNP, CUSTODY OFFICER-BC 12/23/18 Gabapentin (GABAPENTIN) 100 Mg Capsule, 1-3 CAP PO TID, #60 CAPSULE 3 Refills Prov:OSCAR SPAULDNIG MD 12/10/18 Diet: Regular Activity: As Tolerated Special Instructions: Follow up for close monitoring with your PCP. Recheck CMP,CRP,CPK on 01/22 and have results brought to your PCP for conitinued monitoring. Follow Steroid Taper. If symptoms return or worsen follow up with your PCP or return to the ER. Concider follow up with Rheumatology and possible MRI of affected areas if symtpoms do not continue to improve. Limit your Tylenol intake or any medications containing Tylenol. Continue to stay well hydrated. Copies to: OSCAR SPAULDING MD ; Venous Thromboembolism Antithrombotics Is Pt On Any Antithrombotics?: Yes WENDY ROSE Jan 20, 2019 05:30
[2019-01-22] MEDS ORDERED: TRIA15OI20 TP (12:58)
== END 2019-01-20 11:33 | disposition home or self-care (01) ==
LOC: ER 08:39 → INTOOBSV 09:38 → MED 09:38
PROVIDERS: ADMIT Internal Medicine; ATTEND Internal Medicine
DX: M79.10 Myalgia, unspecified site (principal); R79.89 Other specified abnormal findings of blood chemistry
CPT/HCPCS: 36415; 81001; 82085; 82550; 82977; 83605; 83735; 84443; 85025; 85651; 86140; 87653; 96360; 96372; 97161; 97165; 99284; A9270; G0378; J1650; J2270; J7030; J7512; 82040; 82247; 82310; 82374; 82435; 82565; 82947; 84075; 84132; 84155; 84295; 84450; 84460; 84520

== ENCOUNTER → 2019-01-23 | Outpatient (CLI) | payer MEDICARE, MEDICAID ==
[2019-01-19 09:35] VITALS: BMI 33.2
[~2019-01-23] MED LIST changes: +CHOL10005 PO; +FERR324T16 PO; +MULT-1335 PO; +OMEG-11 PO
[2019-01-23 11:20] LABS: PLATELET COUNT, AUTOMATED 329 K/uL (150-450)
== END ==
LOC: LAB 10:47
PROVIDERS: ATTEND Internal Medicine
DX: M60.009 Infective myositis, unspecified site (principal); R94.5 Abnormal results of liver function studies
CPT/HCPCS: 36415; 81001; 82040; 82247; 82310; 82374; 82435; 82550; 82565; 82947; 83735; 84075; 84132; 84155; 84295; 84450; 84460; 84520; 85025; 85651; 86038; 86140; 86200; 86430